=== PATIENT | female | born 1970 | race Caucasian/White ===

== ENCOUNTER → 2016-06-12 | Outpatient (CLI) | payer BC, OTHER ==
--- NOTE | 2016-06-12 10:39 | US ---
Thyroid Ultrasound History: Evaluate thyroid gland for nodule with enlargement suspected clinically. TECHNIQUE: Longitudinal and transverse images are obtained. Color Doppler evaluation is employed for assessment of vascularity. Findings: The right lobe measures 5.4 x 1.4 x 1.7 cm and the left lobe measures 4.5 x 1.0 x 1.6 cm. T he isthmus measures 3 mm. In the right lobe inferiorly there is a dominant follicle which is predomin antly cystic and measures 1.3 x 1.2 x 0.8 cm. This does have some solid component predominantly invol ving the pendleton. There is minimal debris within the cyst. Additionally, both lobes as well as the isth mus show heterogeneous echogenicity which may represent small nodules which cannot be characterized a ccurately due to their small size. There is a probable 5 x 6 mm nodule of the isthmus. No abnormal ly mph nodes are identified. IMPRESSION: Dominant predominantly cystic right lobe nodule would account for findings on clinical ex amination. Sonographic surveillance is suggested with repeat sonography in 12 months.
== END ==
LOC: BMCIMAGING 09:18
PROVIDERS: ATTEND Internal Medicine
DX: E04.1 Nontoxic single thyroid nodule (principal)
CPT/HCPCS: 76536-PO

== ENCOUNTER → 2016-11-18 | Outpatient (CLI) | payer OTHER | LOC: FIMAGING 11:33 | PROVIDERS: ATTEND Internal Medicine | DX: R51 Headache (principal); R11.0 Nausea ==

== ENCOUNTER → 2017-03-19 | Outpatient (CLI) | payer OTHER | LOC: BMCIMAGING 13:41 | PROVIDERS: ATTEND Internal Medicine | DX: M18.12 Unilateral primary osteoarthritis of first carpometacarpal joint, left hand (principal) ==

== ENCOUNTER → 2017-03-21 | Outpatient (CLI) | payer OTHER | LOC: BMCIMAGING 11:02 | PROVIDERS: ATTEND Psychiatry & Neurology Neurology | DX: M53.3 Sacrococcygeal disorders, not elsewhere classified (principal); F07.81 Postconcussional syndrome ==

== ENCOUNTER 2017-10-24 10:38 | Inpatient (IN) | payer OTHER ==
[2017-10-24] MEDS ORDERED: DIAZEPAM 5 MG/ML 1 ML SYR IVP ONE (11:12)
[2017-10-24] MEDS ORDERED: DEXAMETHASONE 4 MG/ML VIAL IVP ONE (11:12)
[2017-10-24] MEDS ORDERED: HYDROmorphONE/DILAUDID 1 MG/ML INJ IVP ONE ×2 (11:13→12:42)
--- NOTE | 2017-10-24 11:13 | EDPHY ---
H & P Stated Complaint: lower atraumatic backpain Time Seen by Provider: 10/24/17 10:45 HPI/ROS: CHIEF COMPLAINT: Acute low back pain HISTORY OF PRESENT ILLNESS: 47-year-old female generally healthy, works as a construction driver, awoke with no back pain today, was sitting at her kitchen counter , leaned over and felt sudden sharp stabbing right paraspinous lumbar pain. She was able to stretch her back, took meloxicam and Tylenol, apply he compresses to the area and notes that the pain progressed over the next 3 hr. She was then getting dressed, standing on 1 leg and had worsened pain the point where she had to go to the floor, needed call EMS to transport her. She denies trauma or fall otherwise. Denies manipulation history. Denies radicular symptoms such as paresthesia, pain, denies foot drop, denies incontinence or retention. Denies saddle anesthesia. Denies urinary abnormality. Denies fever chills. REVIEW OF SYSTEMS: A ten point review of systems was performed and is negative with the exception of the items mentioned in the HPI PAST MEDICAL & SURGICAL HISTORY: No pertinent medical or surgical history SOCIAL HISTORY: with children. Works as a construction driver. Nonsmoker. No IV drug use history. PHYSICAL EXAM (Prior to examination, patient consented to physical exam, hands were washed and my usual and customary physical exam procedures followed) 1) GENERAL: Well-developed, well-nourished, alert and oriented. Laying supine, hesitant to move. Appears well as long she is not moving. Appears to be in quite a bit of discomfort if she attempts to sit up her rotate.. 2) HEAD: Normocephalic, atraumatic 3) HEENT: Pupils equal, round, reactive to light bilaterally. Sclera anicteric. Nasopharynx, oropharynx, clear, no lesions. 4) NECK: Full range of motion, no meningeal signs. 5) LUNGS: Clear auscultation bilaterally, no wheezes, no rhonchi, no retractions. 6) HEART: Regular rate and rhythm, no murmur, no heave, no gallop. 7) ABDOMEN: No guarding, no rebound, no focal tenderness, negative McBurney's, negative Medeiros's, negative Rovsing's, negative peritoneal sign, 8) MUSCULOSKELETAL: Moving all extremities, no focal areas of tenderness, no obvious trauma. No peripheral edema or discoloration. 9) BACK: tender to palpation right paraspinous muscle. Positive straight leg lift test right greater than left. No CVA tenderness, no midline vertebral tenderness, no fluctuance, no step-off, no obvious trauma, no visual or palpable abnormality. Patella, Achilles reflexes intact to bilateral strength 5 /5 10) SKIN: No rash, no petechiae. 11) NEURO: Awake, alert, and oriented to person, place and time. Answers questions appropriately. There were no obvious focal neurologic abnormalities. No cerebellar dysfunction. Normal steady gait. Upper and lower extremities bilaterally with strength 5 / 5, reflexes 2+.. DIFFERENTIAL DIAGNOSIS: In no particular order, including but not limited to, fracture, sprain/strain, cauda equina, spinal infectious etiology. - Personal History LMP (Females 10-55): IUD In Place Current Tetanus/Diphtheria Vaccine: Yes Current Tetanus Diphtheria and Acellular Pertussis (TDAP): Yes - Medical/Surgical History Hx Asthma: Yes Hx Chronic Respiratory Disease: No Hx Diabetes: No Hx Cardiac Disease: No Hx Renal Disease: No Hx Cirrhosis: No Hx Alcoholism: No Hx HIV/AIDS: No Hx Splenectomy or Spleen Trauma: No Other PMH: concussion, tailbone injury a year ago, exerciseinduced astma - Social History Smoking Status: Never smoked Constitutional: Initial Vital Signs Temperature (C) 36.6 C 10/24/17 10:38 Heart Rate 68 10/24/17 10:38 Respiratory Rate 16 10/24/17 10:38 Blood Pressure 121/64 H 10/24/17 10:38 O2 Sat (%) 95 10/24/17 10:38 O2 Delivery Mode Room Air O2 (L/minute) 2 Allergies/Adverse Reactions: No Known Allergies Allergy (Verified 10/24/17 13:27) Home Medications: Medication Instructions Recorded [place] Eye Drops 1 drop EACHEYE DAILY PRN 10/24/17 Cholecalciferol Vit D3 [Vitamin D3 1,000 units PO DAILY 10/24/17 (*)] Levonorgestrel [Mirena] 1 each IY .[id number] 10/24/17 Meloxicam 15 mg PO DAILY 10/24/17 Multivitamins [Multivitamin (*)] 1 each PO DAILY 10/24/17 Medical Decision Making - Diagnostics Imaging Results: Imaging Impressions Lumbar Spine MRI 10/24/17 12:47 Impression: 1. Mild multilevel lower lumbar degenerative disk disease. Annular bulging at L5 -S1 is associated with asymmetric right-sided neural foraminal stenosis. There is left neural foraminal narrowing at L4-L5 and right neural foraminal narrowing at L3-L4. No dominant central disk herniation identified. 2. Marked distention of the urinary bladder.. Results called to Aime Nam PA-C, at 2:50 p.m. Images reviewed myself ED Course/Re-evaluation: 12:16 p.m.: Re-evaluation after Dilaudid, benzodiazepine. She is feeling improvement. She would like to attempt ambulation testing. I saw this patient independently based on established practice protocols. Care of patient under supervision of secondary supervising physician Dr Bingham with whom I discussed case. 12:40 p.m.: Patient re-evaluated. Though she is feeling improvement while laying supine she was unable to sit up or get out of bed even with the assistance of multiple emergency department staff members. Her and children at bedside now. Discussed options with the patient including discharge home. I have expressed my concerns about discharging patient home given her her current pain level and her inability to get of bed, if concerns about her ability to care for self. She is in agreement. Plan will therefore be admission to the hospital. 12:47 p.m.: Consultation with hospitalist, Elvira, will admit to Dr. Cabrera. Hospitalist recommended MRI which will be ordered. 2:52 p.m. patient back from MRI. I reviewed the MRI results the patient showing small annular bulge. She is noted to have significant amount of urinary bladder distension. Discussed this with her and she denies involuntary retention, states that she has been voluntarily retaining her urine because she has been unable to get out of the bed. - Data Points Laboratory Results: Laboratory Results 10/24/17 11:20 10/24/17 11:20 10/24/17 10/24/17 10/24/17 11:20 11:20 11:20 WBC 5.07 10^3/uL 10^3/uL (3.80-9.50) RBC 4.16 10^6/uL L 10^6/uL (4.18-5.33) Hgb 12.5 g/dL L g/dL (12.6-16.3) Hct 36.5 % L % (38.0-47.0) MCV 87.7 fL fL (81.5-99.8) MCH 30.0 pg pg (27.9-34.1) MCHC 34.2 g/dL g/dL (32.4-36.7) RDW 12.5 % % (11.5-15.2) Plt Count 184 10^3/uL 10^3/uL (150-400) MPV 10.8 fL fL (8.7-11.7) Neut % (Auto) 70.4 % % (39.3-74.2) Lymph % (Auto) 21.3 % % (15.0-45.0) Stephenson % (Auto) 6.9 % % (4.5-13.0) Eos % (Auto) 0.6 % % (0.6-7.6) Baso % (Auto) 0.6 % % (0.3-1.7) Nucleat RBC Rel Count 0.0 % % (0.0-0.2) Absolute Neuts (auto) 3.57 10^3/uL 10^3/uL (1.70-6.50) Absolute Lymphs (auto) 1.08 10^3/uL 10^3/uL (1.00-3.00) Absolute Monos (auto) 0.35 10^3/uL 10^3/uL (0.30-0.80) Absolute Eos (auto) 0.03 10^3/uL 10^3/uL (0.03-0.40) Absolute Basos (auto) 0.03 10^3/uL 10^3/uL (0.02-0.10) Absolute Nucleated RBC 0.00 10^3/uL 10^3/uL (0-0.01) Immature Gran % 0.2 % % (0.0-1.1) Immature Gran # 0.01 10^3/uL 10^3/uL (0.00-0.10) Sodium 143 mEq/L mEq/L (135-145) Potassium 3.9 mEq/L mEq/L (3.3-5.0) Chloride 107 mEq/L mEq/L (97-110) Carbon Dioxide 25 mEq/l mEq/l (22-31) Anion Gap 11 mEq/L mEq/L (8-16) BUN 12 mg/dL mg/dL (7-23) Creatinine 0.7 mg/dL mg/dL (0.6-1.0) Estimated GFR > 60 Glucose 94 mg/dL mg/dL (70-100) Calcium 8.6 mg/dL mg/dL (8.5-10.4) Beta HCG, Qual NEGATIVE Medications Given: Discontinued Medications Dexamethasone (Decadron Injection) 8 mg IVP EDNOW ONE Stop: 10/24/17 11:13 Last Admin: 10/24/17 11:25 Dose: 8 mg Diazepam (Valium) 5 mg IVP EDNOW ONE Stop: 10/24/17 11:13 Last Admin: 10/24/17 11:25 Dose: 5 mg Hydromorphone HCl (Dilaudid) 0.5 mg IVP EDNOW ONE Stop: 10/24/17 11:14 Last Admin: 10/24/17 11:25 Dose: 0.5 mg Hydromorphone HCl (Dilaudid) 0.5 mg IVP EDNOW ONE Stop: 10/24/17 12:43 Last Admin: 10/24/17 13:20 Dose: 0.5 mg Departure - Departure Disposition: [facility] Inpatient Acute Clinical Impression: Intractable low back pain Condition: Fair
[2017-10-24 11:35] LABS: PLATELET COUNT 184 10^3/uL (150-400)
[2017-10-24] MEDS ORDERED: DIAZEPAM 2 MG TAB PO PRN (15:21)
[2017-10-24] MEDS ORDERED: ONDANSETRON 4 MG/2 ML VIAL IVP PRN (15:23)
[2017-10-24] MEDS ORDERED: HYDROmorphONE/DILAUDID 1 MG/ML INJ IVP PRN (15:23)
[2017-10-24] MEDS ORDERED: ONDANSETRON DISINTEGRATING 4 MG TAB PO PRN (15:23)
[2017-10-24] MEDS ORDERED: ALAWAY EYE EACHEYE PRN (15:41)
[2017-10-24] MEDS ORDERED: NON-FORMULARY NEW DRUG (Levonorgestrel [Mirena] 1 EACH) IY SCH (15:45)
--- NOTE | 2017-10-24 16:22 | GHP ---
[f rep st] HISTORY AND PHYSICAL DATE OF ADMISSION: 10/24/2017 CHIEF COMPLAINT: Lower back pain. HISTORY OF PRESENT ILLNESS: The patient is a 47-year-old female who is overall very healthy, who presented to the emergency room for severe acute back pain. She has a history of hurting her tailbone approximately a year ago when she was bucked off her horse. At that time, she sustained a concussion. [place] and works as a scaffolding helper. She is very active, rides her bike and recently started running. Today, she was sitting on her barstool drinking a cup of coffee when she felt her back went into spasms. She lied down and stretched and was having difficulty getting up. She tried meloxicam ,Tylenol and a hot shower without any relief in her pain. She then tried ice packs x2 for approximately 10 minutes. She had a friend who was there visiting her. She noticed that her back got very bright red where the ice on had been placed. She subsequently stood up on her right leg, the pain became so intense and radiated to the sacral area and to the pelvis area. She called 911 due to severe back pain. EMS transported her here to the emergency room. She denies any type of trauma or fall. She is not incontinent of urine or stool. She denies any type of fever or chills. During my interview her pain was better after receiving IV Valium and Dilaudid. PAST MEDICAL HISTORY: Concussion after getting bucked off her horse. This occurred a year ago. PAST SURGICAL HISTORY: Tonsillectomy. SOCIAL HISTORY: She works as a scaffolding helper. She has 2 sons. She has been for 18 years. She does not smoke. She occasionally drinks 1-2 times a week. She overall is a very active person. FAMILY HISTORY: Her parents are healthy. ALLERGIES: No known allergies. HOME MEDICATIONS: Eyedrops p.r.n., multivitamin 1 tab daily, Meloxicam 15 mg daily, Mirena changed every 5 years, and vitamin D3 1000 units daily. REVIEW OF SYSTEMS: A 10-point review of system was performed, was negative other than the pertinent positives in the HPI and past medical history. PHYSICAL EXAM: GENERAL: The patient is a 47-year-old female who appears to be in excellent health. VITAL SIGNS: Blood pressure is 101/64, heart rate is 72, respiratory rate of 13, O2 saturation on room air 97%, temperature is 36.4 Celsius. EYES: Pupils are equal reactive. EOMs are intact. No conjunctival injection noted. ENT: Normal ears. Hearing intact. MOUTH: Normal lips, teeth. Oral airway is moist. NECK: Trachea is midline. CARDIOVASCULAR: She is in a regular rate and rhythm. No murmurs, rubs, or gallops noted. CHEST/ LUNGS: Normal respiratory effort. ABDOMEN: Soft, nontender. SKIN: I evaluated her low back area. She has a bright red area approximately 3 inches in length and 2 inches in height that blanches in the middle. It is nonpainful during my evaluation. MUSCULOSKELETAL: She is able to do straight leg lifts. Her back is tender to palpation in the right paraspinous muscle. She has equal upper and lower strength. PSYCHIATRIC: She is alert and oriented. Normal mood , affect. Normal judgment, insight and normal memory. DATA REVIEWED: A CBC shows a white blood cell count of 5.07, hemoglobin 12.5, hematocrit of 36.5, platelet count of 184. Chemistry: Sodium is 143, potassium 3.9, chloride of 107, CO2 of 25, BUN 12, creatinine 0.7, calcium 8.6, glucose of 94. screen is negative. A lumbar spine MRI was performed. This showed mild multilevel lower lumbar degenerative disk disease. She has annular bulging at L5-S1 associated with asymptomatic right-sided neural foraminal stenosis. There is left neuroforaminal narrowing at L4-L5 and right neuroforaminal narrowing at L3-L4. No dominant central disk herniation, identified. She has marked distention of the urine bladder. ASSESSMENT/PLAN: 1. Acute back pain with spasms. The MRI is assuring of no disk herniation. She does have significant narrowing and bulging at L5-S1. Will place her on scheduled muscle relaxants to see if this will help. Will also put her on a Medrol Dosepak. If she is not markedly improved, could consider neurosurgery consult. Will also ask for physical therapy and occupational therapy to see her. During my interview she was having difficulty with getting out of bed and with rolling to her side. 2. Urinary retention. She has purposely not moved out of fear due to the back pain. She will get straight cath p.r.n. and hopefully she can get up later this evening. 3. Ice pack burn to her low back area. Will ask Wound Care to see her. It already looks improved when compared to a picture on her cell phone. 4. Deep venous thrombosis prophylaxis, low risk. 5. Length of stay: She will likely require less than a 2-midnight stay, which will make her observation status. This can be further evaluated tomorrow. /[id number]/MODL MTDD
[2017-10-24] MEDS ORDERED: MAGNESIUM HYDROXIDE 30 ML UDCUP PO PRN (16:23)
[2017-10-24] MEDS ORDERED: LACTULOSE 20 GM/30 ML UDCUP PO PRN (16:23)
[2017-10-24] MEDS ORDERED: BISACODYL 10 MG SUPP PR PRN (16:23)
[2017-10-24] MEDS ORDERED: POLYETHYLENE GLYCOL 3350 17 GM PKT PO PRN (16:23)
[2017-10-24] MEDS: ACETAMINOPHEN 325 MG TAB PO PRN (16:33)
[2017-10-24] MEDS: METHOCARBAMOL 750 MG TAB PO SCH ×2 (16:34→21:22)
[2017-10-24] MEDS: methylPREDNISolone 4 MG TAB PO SCH ×2 (19:12→21:22)
[2017-10-24] MEDS: SENNOSIDES/DOCUSATE SODIUM TAB PO SCH (21:22)
[2017-10-24] MEDS: oxyCODONE IR 5 MG TAB PO PRN (21:22)
[2017-10-25] MEDS: ACETAMINOPHEN 325 MG TAB PO PRN ×2 (06:24→13:59)
[2017-10-25] MEDS: methylPREDNISolone 4 MG TAB PO SCH ×5 (08:23→19:27)
[2017-10-25] MEDS: METHOCARBAMOL 750 MG TAB PO SCH ×3 (08:23→21:36)
[2017-10-25] MEDS: CHOLECALCIFEROL VIT D3 1,000 UNITS TAB PO SCH (08:24)
[2017-10-25] MEDS: MULTIVITAMINS 1 EACH TAB PO SCH (08:24)
[2017-10-25] MEDS: SENNOSIDES/DOCUSATE SODIUM TAB PO SCH ×2 (08:24→20:34)
[2017-10-25] MEDS: oxyCODONE IR 5 MG TAB PO PRN (08:30)
[2017-10-25] MEDS ORDERED: NS 1,000 ML IV SCH (14:45)
--- NOTE | 2017-10-25 14:51 | ASMTCMCOM ---
CM Note CM Note Notes: Pt admitted for back pain. PT/OT have cleared pt. She will likely DC with no needs. Date Signed: 10/25/2017 02:50 PM Electronically Signed By:Shira Eaton LCSW
--- NOTE | 2017-10-25 17:11 | HOSPPROG ---
Hospitalist Progress Note Assessment/Plan: * Low back pain -severe, unsafe ambulation -MRI negative - due to severe muscle spasm -scheduled robaxin + medrol dose pack * Dizziness, pre-syncope -suspect vagal event - watch on tele * Hypotension - IVF * Frostbite injury to low back -wound care Subjective: GOt up to bathroom and was very dizzy, almost passed out. can't care for her at home Objective: Vital Signs Temp Pulse Resp BP Pulse Ox 37.1 C 64 14 92/54 L 92 10/25/17 15:21 10/25/17 15:21 10/25/17 15:21 10/25/17 15:21 10/25/17 15:21 10/24/17 10/25/17 10/26/17 05:59 05:59 05:59 Intake Total 200 900 Output Total 1200 700 Balance -1000 200 d/w Elvira Mosquera - sign out regarding yesterday events MRI Lspine - mild foraminal narrowing Laboratory Tests 10/24/17 11:20 WBC 5.07 Hct 36.5 L Plt Count 184 - Physical Exam Constitutional: no apparent distress, appears nourished, not in pain Cardiovascular: regular rate and rhythym, no murmur, rub, or gallop Respiratory: no respiratory distress, no rales or rhonchi, clear to auscultation Gastrointestinal: normoactive bowel sounds, soft, non-tender abdomen, no palpable masses Skin: no rashes or abrasions, no fluctuance, no induration Neurologic: AAOx3, sensation intact bilaterally Psychiatric: interacting appropriately, not anxious, not encephalopathic, thought process linear ICD10 Worksheet Patient Problems: Problems Problem Status Onset Intractable low back pain Acute
--- NOTE | 2017-10-25 17:45 | PDMN ---
Medical Necessity Medical necessity: C/M review: Patient meets INPT criteria under MCG M-152 Dizziness, M-340 Syncope, M-63 Back pain: Acute and persistent severe low back pain, patient has medically unsafe ambulation, lumbar MRI was negative - due to severe muscle spasm, acute and persistent dizziness, presyncope - 10/25/2017 AM patient got up to the bathroom with assist, was very dizzy, almost passed out - suspect vagal event hypotension - 10/25/2017 09:20 AM BP 95/63 dropped to 87/43 09:29 when patient up to bathroom with assist, when returned to bed lying down, BP 95/63, requiring planned Wound care consult, ongoing IV NS 100 ml /hr., scheduled oral Medrol dose pack and oral Robaxin - cardiac monitoring, frequent vital sign monitoring, IV Zofran, new- patient now requires 1-2 person assist to attempt to sit or stand at bedside, acute inpt PT/OTcomorbid frostbite injury to low back present on admission. MD anticipates > 2 MN LOS for ongoing med nec for eval and TX of above.
[2017-10-25] MEDS ORDERED: methylPREDNISolone 4 MG TAB PO SCH (21:00)
[2017-10-26] MEDS: METHOCARBAMOL 750 MG TAB PO SCH (08:21)
[2017-10-26] MEDS: methylPREDNISolone 4 MG TAB PO SCH ×2 (08:21→13:17)
[2017-10-26] MEDS: CHOLECALCIFEROL VIT D3 1,000 UNITS TAB PO SCH (08:21)
[2017-10-26] MEDS: MULTIVITAMINS 1 EACH TAB PO SCH (08:21)
[2017-10-26] MEDS: SENNOSIDES/DOCUSATE SODIUM TAB PO SCH ×2 (08:22→08:24)
[2017-10-26 11:11] VITALS: BP 97/65
--- NOTE | 2017-10-26 11:59 | ASDISCHSUM ---
Discharge Information Plan Status:Home with No Needs Medically Cleared to Leave:10/26/2017 Discharge Date:10/26/2017 CM D/C Disposition:Home, Routine, Self-Care ADT D/C Disposition:Home, Routine, Self-Care Projected Discharge Date:10/26/2017 Transportation at D/C:Family Discharge Delay Reason: Follow-Up Date:10/26/2017 Discharge Slot: Final Diagnosis: Placement Information Patient Contact Information Contact Name:TORIN Relationship: Address:[address] City:[place] Alternate Phone: [facility]/Zip Code:[place] [address] Email: Financial Information Financial Class:HMO and PPO Plans Primary Plan Desc:[employer] Primary Plan Number:[id number] Secondary Plan Desc: Secondary Plan Number: Assessment Information [facility] CM Progress Note CM Note CM Note Notes: Pt admitted for back pain. PT/OT have cleared pt. She will likely DC with no needs. Date Signed: 10/25/2017 02:50 PM Electronically Signed By:Shira Eaton LCSW LACE LACE Length of stay for Answers: 2 days current admission Acuity / Level of Answers: Yes Care: Did the patient have an inpatient admission? # of Emergency department Answers: 0 visits in the last 6 months Score: 5 Date Signed: 10/26/2017 11:59 AM Electronically Signed By:SIXTO Streeter Case Management Discharge Plan Note Case Management Discharge Discharge Order Complete? Answers: Yes Patient to Obtain Answers: via Family Medications Transportation Arranged Answers: Family/Friends Discharge Comments Notes: PT/OT have cleared pt. She is discharging home with family today and no CM needs. Date Signed: 10/26/2017 11:57 AM Electronically Signed By:SIXTO Streeter Intervention Information
--- NOTE | 2017-10-26 15:22 | GDS ---
[f rep st] DISCHARGE SUMMARY DISCHARGE DIAGNOSES: 1. Low back pain due to muscle spasm. 2. Dizziness and presyncope. 3. Hypotension. 4. Frostbite injury to low back. HISTORY: The patient is a 47-year-old female who had acute onset of severe low back pain. MRI of th e spine was relatively unremarkable and nothing was found to explain her pain. She had some foramina l narrowing at L4-L5 and L5-S1, but did not have any radiculopathy pain to correlate with this. It w as felt her back pain was likely due to an acute muscle spasm. She was admitted to the [facility] use she was in such excruciating pain, she could not even move. She would get dizzy and lightheaded and almost passed out every time she tried to get up. She was treated conservatively with physical a nd occupational therapy, Medrol Dosepak, and pain control, as well as scheduled muscle relaxants, and she has improved and is safe to discharge home at this time. She did give herself a frostbite injur y to her low back when she was at home lying on ice pack, but the skin is recovering and I think it w ill heal. DISCHARGE MEDICATIONS: Please see computerized record for full detailed list. New medications: 1. Medrol dose pack as directed. 2. Robaxin 750 mg p.o. t.i.d. until back pain relieved. 3. A small prescription for oxycodone given, 5 mg tablets, 20 tablets dispensed. ADDITIONAL DISCHARGE INSTRUCTIONS: Outpatient physical therapy. Call primary care to order and arra nge. Greater than 30 minutes' time spent arranging this discharge. Patient seen and examined by me on day of discharge. /[id number]/MODL
[2017-10-27] MEDS ORDERED: methylPREDNISolone 4 MG TAB PO SCH (07:30)
[2017-10-28] MEDS ORDERED: methylPREDNISolone 4 MG TAB PO SCH (07:30)
[2017-10-29] MEDS ORDERED: methylPREDNISolone 4 MG TAB PO SCH (07:30)
== END 2017-10-26 15:04 | disposition home or self-care (01) | DRG 552 ==
LOC: EDUNIT# → F3N 16:13 → OBSVTOIN 10-25 14:35
PROVIDERS: ADMIT Internal Medicine; ATTEND Internal Medicine
DX: M62.830 Muscle spasm of back (principal); T33.99XA Superficial frostbite of other sites, initial encounter; I95.9 Hypotension, unspecified; R33.9 Retention of urine, unspecified
CPT/HCPCS: 97110-GP; 97116-GP; 97161-GP; 97165-GO; G0378; J1100; J1170; J2405; J3360

== ENCOUNTER → 2018-11-10 | Outpatient (CLI) | payer OTHER | LOC: FIMAGING 09:23 ==